=== PATIENT | male | born 1950 | race Hispanic/Latino ===

== ENCOUNTER 2018-08-30 08:10 | Outpatient (CLI) | payer MEDICARE ==
--- NOTE | 2018-08-31 00:48 | Magnetic Resonance Report ---
FINAL REPORT PROCEDURE: MR CERVICAL SPINE WO CON TECHNIQUE: Magnetic resonance imaging of the cervical spine was performed using standard pulse seque nces without contrast material. HISTORY: DEGENERATION OF INTERVERTEBRAL DISC OF CERVICAL REGIONoutpatient COMPARISON: No prior studies are available for comparison. FINDINGS: C1-2: Normal articulation. No spinal stenosis. C2-3: The disc is normal. No canal stenosis.. C3-4: The disc is normal. No canal stenosis. C4-5: The disc is normal. No canal stenosis. C5-6: The disc is normal. No canal stenosis. C6-7: The disc is normal. No canal stenosis. C7-T1: The disc is normal. No canal stenosis. Other: There has been previous anterior cervical surgery. The alignment is normal. The marrow and dis c signals are normal. The cervical cord signal is normal.. IMPRESSION: Normal Examination
== END 2018-08-30 08:11 | disposition home or self-care (01) ==
LOC: SPVIMAG 08:10
DX: M50.30 Other cervical disc degeneration, unspecified cervical region (principal); I10 Essential (primary) hypertension; K21.9 Gastro-esophageal reflux disease without esophagitis; E66.9 Obesity, unspecified
CPT/HCPCS: 72141

== ENCOUNTER 2019-07-07 11:00 | Outpatient (CLI) | payer MEDICARE | END 2019-07-07 11:01 | disposition home or self-care (01) | LOC: SLR 11:00 | PROVIDERS: ATTEND Otolaryngology | DX: G47.33 Obstructive sleep apnea (adult) (pediatric) (principal) | CPT/HCPCS: 95811 ==